=== PATIENT | female | born 1980 | race Caucasian/White ===

== ENCOUNTER 2018-02-05 10:42 | Emergency (ER) | payer OTHER ==
[2018-02-05 11:33] LABS: Urine Blood TRACE (NEG); Urine Glucose 2+ (NEG); Urine Protein NEGATIVE (NEG); Urine Specific Gravity 1.025 (1.005-1.030)
[2018-02-05] MEDS ORDERED: NA CHLORIDE 0.9% 1,000 ML ONE (11:41)
--- NOTE | 2018-02-05 11:55 | RAD REPORT ---
EXAM DESCRIPTION: CT - Head Brain Wo Cont - 02/05/2018 11:47 am CLINICAL HISTORY: r/o stroke CVA symptomology COMPARISON: No comparisons TECHNIQUE: All CT scans are performed using dose optimization technique as appropriate and may inclu de automated exposure control or mA/KV adjustment according to patient size. FINDINGS: No intracranial hemorrhage, hydrocephalus or extra-axial fluid collection.No areas of brai n edema or evidence of midline shift. The paranasal sinuses and mastoids are essentially clear. The calvarium is intact. IMPRESSION: No acute intracranial abnormality. If there is continued clinical concern for CVA, MR i maging of the brain would be recommended.
[2018-02-05 11:58] LABS: Absolute Lymphocytes (CBC) 2.3 K/uL (0.7-4.9); Absolute Monocytes 0.4 K/uL (0.1-1.3); Absolute Neutrophil 4.1 K/uL (1.8-8.0); Basophils % 0.6 % (0-1.3); Eosinophils % 3.1 % (0-4.4); Hematocrit 41.1 % (36.0-45.0); Lymphocytes % 32.1 % (15.3-44.8); MCH 28.4 pg (27.0-35.0); MCV 82.8 fL (80-100); MPV 8.5 fL (7.6-11.3); Monocytes % 6.1 % (3.3-12.3); RBC Red Blood Cell Count 4.96 M/uL (3.86-4.86)
[2018-02-05 12:00] LABS: Protime INR 0.9
[2018-02-05 12:15] LABS: ALT/SGPT 26 U/L (12-78); AST/SGOT 16 U/L (15-37); Albumin 3.5 g/dL (3.4-5.0); Alkaline Phosphatase 86 U/L (45-117); BUN Blood Urea Nitrogen 11 mg/dL (7-18); Bicarbonate 26 mmol/L (21-32); Bilirubin Direct < 0.1 mg/dL (0-0.2); Bilirubin Total 0.2 mg/dL (0.2-1.0); Glucose Level 116 mg/dL (74-106); Magnesium 2.1 mg/dL (1.8-2.4); NT PRO-BNP 27 pg/mL (<125); Potassium 4.1 mmol/L (3.5-5.1); Protein, Total 7.8 g/dL (6.4-8.2); Sodium Level 139 mmol/L (136-145); Troponin (Emerg Dept Use Only) < 0.02 ng/mL (0.0-0.045)
[2018-02-05 12:26] LABS: Urine Bacteria >50 /HPF (<20); Urine RBC <5 /HPF (NONE SEEN)
[2018-02-05 12:27] LABS: Urine Culture Reflex Order NOT NEEDED
--- NOTE | 2018-02-05 12:30 | RAD REPORT ---
EXAM DESCRIPTION: MRI - Brain Wo Cont - 02/05/2018 12:11 pm CLINICAL HISTORY: Right hand numbness COMPARISON: February 05, [address] TECHNIQUE: Axial, sagittal, and coronal magnetic resonance images of the brain were obtained. FINDINGS: No abnormal signal is present within the brain. Diffusion-weighted/ADC mapping does not reveal evidence of acute infarction. The ventricles are normal caliber. An extra-axial fluid collection is not noted. The sinuses and mastoids are clear. IMPRESSION: Unremarkable unenhanced brain MRI
[2018-02-05] MEDS ORDERED: ASPIRIN 81 MG CHEWABLE TABLET ONE (12:37)
[2018-02-05] MEDS ORDERED: CEFTRIAXONE/SWI 1gm 1 GM/10 ML SYR ONE (12:38)
[2018-02-05] MEDS ORDERED: FOLIC ACID 5 MG/ML VIAL ONE (12:38)
--- NOTE | 2018-02-05 13:40 | ER ---
Nurse's Notes [facility] Name: Matias Navarrete Age: 37 yrs Sex: Female : 1980 Arrival Date: 02/05/2018 Time: 10:46 Bed 24 Private MD: Diagnosis: Cystitis Presentation: 02/05 10:53 Presenting complaint: Patient states: Last night at 2130 the right side of my face and jl7 right hand went numb, my lips still feel tingly and my doctor told me to come here. Reports intermittent lightheaded and blurry vision. Transition of care: patient was not received from another setting of care. Onset of symptoms was February 04, 2018 at 21:30. Risk Assessment: Do you want to hurt yourself or someone else? Patient reports no desire to harm self or others. Initial Sepsis Screen: Does the patient meet any 2 criteria? No. Patient's initial sepsis screen is negative. Does the patient have a suspected source of infection? No. Patient's initial sepsis screen is negative. Care prior to arrival: None. 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 - Social history:: Smoking status: Patient/guardian denies using tobacco. - Ebola Screening: : No symptoms or risks identified at this time. - Family history:: not pertinent. Screenin:36 Abuse screen: Denies threats or abuse. Denies injuries from another. Nutritional aj screening: No deficits noted. Tuberculosis screening: No symptoms or risk factors identified. Fall Risk None identified. Assessment: 11:36 General: Appears in no apparent distress. comfortable, Behavior is calm, cooperative, aj appropriate for age. Pain: Denies pain. Neuro: Level of Consciousness is awake, alert, obeys commands, Oriented to person, place, time, situation, Appropriate for age Dope Firer are equal bilaterally Moves all extremities. Full function Gait is steady, Speech is normal, Facial symmetry appears normal, Pupils are PERRLA, Intact Reports headache numbness in right side of forehead, right baptism, right eye, right zygomatic area, right side of the nose, right cheek and right arm resolved last night at 2150, 20 minutes after sudden onset. Respiratory: Airway is patent Respiratory effort is even, unlabored, Respiratory pattern is regular, symmetrical. Derm: Skin is intact, is healthy with good turgor, Skin is pink, warm \T\ dry. normal. 13:53 Reassessment: Patient appears in no apparent distress at this time. No changes from aj previously documented assessment. Patient and/or family updated on plan of care and expected duration. Pain level reassessed. Patient is alert, oriented x 3, equal unlabored respirations, skin warm/dry/pink. Patient denies pain at this time. Vital Signs: 10:55 BP 141 / 101; Pulse 86; Resp 18 S; Temp 97.7(O); Pulse Ox 98% on R/A; Weight 89.36 kg jl7 (R); Height 5 ft. 5 in. (165.10 cm) (R); Pain 3/10; 12:34 BP 116 / 76; Pulse 78; Resp 19; Pulse Ox 99% on R/A; aj 13:04 BP 115 / 77; Pulse 73; Resp 20; Pulse Ox 100% on R/A; aj 13:53 BP 113 / 76; Pulse 78; Resp 19; Pulse Ox 99% on R/A; aj 10:55 Body Mass Index 32.78 (89.36 kg, 165.10 cm) jl7 ED Course: 10:46 Patient arrived in ED. mr 10:55 Triage completed. jl7 10:55 Arm band placed on right wrist. jl7 11:01 Ute Chaidez, RN is Primary Nurse. aj 11:08 Armaan Seals MD is Attending Physician. deborah 11:31 Urine --Ancillary (enter results) Sent. aj 11:31 Urine Dipstick--Ancillary (enter results) Sent. aj 11:31 Urine Microscopic Only Sent. aj 11:32 Urine Culture Sent. aj 11:36 Patient has correct armband on for positive identification. aj 11:36 Inserted saline lock: 20 gauge in left antecubital area, using aseptic technique. Blood aj collected. 12:05 Patient moved to MRI via wheelchair. em2 12:24 MRI completed. Patient tolerated well. Patient moved back from MRI. em2 12:47 EKG done, by pipe organ technician. reviewed by Armaan Seals MD. 3 13:28 X-ray completed. Portable x-ray completed in exam room. Patient tolerated procedure jb2 well. 13:39 Madhu Smart MD is Referral Physician. [facility] 13:53 No provider procedures requiring assistance completed. IV discontinued, intact, aj bleeding controlled, No redness/swelling at site. Pressure dressing applied. Administered Medications: 11:35 Drug: NS 0.9% 1000 ml Route: IV; Rate: 1 bolus; Site: left antecubital; aj 13:55 Follow up: Response: No adverse reaction; IV Status: Completed infusion; IV Intake: aj 1000ml 12:32 Drug: Rocephin - (cefTRIAXone) 1 grams Route: IVPB; Infused Over: 30 mins; Site: left aj antecubital; 12:40 Follow up: Response: No adverse reaction; IV Status: Completed infusion; IV Intake: 10mlaj 12:33 Drug: foLIC Acid 1 mg Route: IVPB; Site: left antecubital; aj 13:55 Follow up: Response: No adverse reaction; IV Status: Completed infusion; IV Intake: 1ml aj 12:33 Drug: Aspirin 162 mg Route: PO; aj 13:54 Follow up: Response: No adverse reaction aj Intake: 12:40 IV: 10ml; Total: 10ml. aj 13:55 IV: 1ml; Total: 11ml. aj 13:55 IV: 1000ml; Total: 1011ml. aj Outcome: 13:39 Discharge ordered by . [facility] 13:53 Discharged to home ambulatory, with family. aj 13:53 Condition: good 13:53 Discharge instructions given to patient, Instructed on discharge instructions, follow up and referral plans. medication usage, Demonstrated understanding of instructions, follow-up care, medications, Prescriptions given X 2. 13:56 Patient left the ED. aj Signatures: Ute Chaidez, RN Armaan Ni MD MD cha Rivera, Mary mr Fleming Roland jb2 Godwin Payne em2 Chanda Mullins RN RN jl7 Micaela Payne 3
--- NOTE | 2018-02-05 13:40 | EDPHYS ---
Physician Documentation [facility] Name: Matias Navarrete Age: 37 yrs Sex: Female : 1980 Arrival Date: 02/05/2018 Time: 10:46 Bed 24 Private MD: Armaan Moffett HPI: 02/05 13:35 This 37 yrs old Female presents to ER via Ambulatory with complaints of deborah facial numbness, Blurred Vision. 13:35 The patient is experiencing blurred vision. Onset: The symptoms/episode began/occurred deborah this morning. Duration: the symptoms last a few minutes. Aggravated by nothing. Alleviated by nothing. Associated signs and symptoms:. The patient's problem is reported as paresthesias, in right side of face. Duration: The episode is continuous. The patient presents with dizziness. 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 - Social history:: Smoking status: Patient/guardian denies using tobacco. - Ebola Screening: : No symptoms or risks identified at this time. - Family history:: not pertinent. ROS: 13:35 Constitutional: Negative for fever, chills, and weight loss, Eyes: Negative for injury, deborah pain, redness, and discharge, ENT: Negative for injury, pain, and discharge, Neck: Negative for injury, pain, and swelling, Cardiovascular: Negative for chest pain, palpitations, and edema, Respiratory: Negative for shortness of breath, cough, wheezing, and pleuritic chest pain, Abdomen/GI: Negative for abdominal pain, nausea, vomiting, diarrhea, and constipation, Back: Negative for injury and pain, : Negative for injury, bleeding, discharge, and swelling, MS/Extremity: Negative for injury and deformity, Skin: Negative for injury, rash, and discoloration, Psych: Negative for depression, anxiety, suicide ideation, homicidal ideation, and hallucinations, Allergy/Immunology: Negative for hives, rash, and allergies, Endocrine: Negative for neck swelling, polydipsia, polyuria, polyphagia, and marked weight changes, Hematologic/Lymphatic: Negative for swollen nodes, abnormal bleeding, and unusual bruising. 13:35 Neuro: Positive for tingling. Exam: 13:35 Radiologist reports: jersey cabrera 13:35 Constitutional: This is a well developed, well nourished patient who is awake, alert, and in no acute distress. Head/Face: Normocephalic, atraumatic. Eyes: Pupils equal round and reactive to light, extra-ocular motions intact. Lids and lashes normal. Conjunctiva and sclera are non-icteric and not injected. Cornea within normal limits. Periorbital areas with no swelling, redness, or edema. ENT: Nares patent. No nasal discharge, no septal abnormalities noted. Tympanic membranes are normal and external auditory canals are clear. Oropharynx with no redness, swelling, or masses, exudates, or evidence of obstruction, uvula midline. Mucous membranes moist. Neck: Trachea midline, no thyromegaly or masses palpated, and no cervical lymphadenopathy. Supple, full range of motion without nuchal rigidity, or vertebral point tenderness. No Meningismus. Chest/axilla: Normal chest wall appearance and motion. Nontender with no deformity. No lesions are appreciated. Cardiovascular: Regular rate and rhythm with a normal S1 and S2. No gallops, murmurs, or rubs. Normal PMI, no JVD. No pulse deficits. Respiratory: Lungs have equal breath sounds bilaterally, clear to auscultation and percussion. No rales, rhonchi or wheezes noted. No increased work of breathing, no retractions or nasal flaring. Abdomen/GI: Soft, non-tender, with normal bowel sounds. No distension or tympany. No guarding or rebound. No evidence of tenderness throughout. Back: No spinal tenderness. No costovertebral tenderness. Full range of motion. Female : Normal external genitalia. Skin: Warm, dry with normal turgor. Normal color with no rashes, no lesions, and no evidence of cellulitis. MS/ Extremity: Pulses equal, no cyanosis. Neurovascular intact. Full, normal range of motion. Neuro: Awake and alert, GCS 15, oriented to person, place, time, and situation. Cranial nerves II-XII grossly intact. Motor strength 5/5 in all extremities. Sensory grossly intact. Cerebellar exam normal. Normal gait. Psych: Awake, alert, with orientation to person, place and time. Behavior, mood, and affect are within normal limits. Vital Signs: 10:55 BP 141 / 101; Pulse 86; Resp 18 S; Temp 97.7(O); Pulse Ox 98% on R/A; Weight 89.36 kg jl7 (R); Height 5 ft. 5 in. (165.10 cm) (R); Pain 3/10; 12:34 BP 116 / 76; Pulse 78; Resp 19; Pulse Ox 99% on R/A; aj 13:04 BP 115 / 77; Pulse 73; Resp 20; Pulse Ox 100% on R/A; aj 13:53 BP 113 / 76; Pulse 78; Resp 19; Pulse Ox 99% on R/A; aj 10:55 Body Mass Index 32.78 (89.36 kg, 165.10 cm) 7 MDM: 11:08 Patient medically screened. [facility] 13:37 Data reviewed: vital signs, nurses notes, lab test result(s), EKG, radiologic studies, [facility] CT scan, MRI, plain films. 02/05 11:11 Order name: Urine Dipstick--Ancillary (enter results) 02/05 11:11 Order name: Urine --Ancillary (enter results) 02/05 11:11 Order name: Urine Culture 02/05 11:11 Order name: Urine Microscopic Only 02/05 11:17 Order name: Basic Metabolic Panel 02/05 11:17 Order name: CBC with Diff 02/05 11:17 Order name: LFT's 02/05 11:17 Order name: Magnesium 02/05 11:17 Order name: NT PRO-BNP 02/05 11:17 Order name: PT-INR 02/05 11:17 Order name: Troponin (emerg Dept Use Only) 02/05 11:34 Order name: Urine --Ancillary; Complete Time: 11:46 EDLA 02/05 11:34 Order name: Urine Dipstick-Ancillary; Complete Time: 11:46 EDLA 02/05 11:59 Order name: CBC with Automated Diff; Complete Time: 13:11 [facility] 02/05 11:17 Order name: CT Head Brain wo Cont 02/05 11:30 Order name: MRI Stroke Protocol [facility] 02/05 11:56 Order name: CT; Complete Time: 13:11 [facility] 02/05 12:01 Order name: Protime (+INR); Complete Time: 13:11 [facility] 02/05 12:16 Order name: Basic Metabolic Panel; Complete Time: 13:11 [facility] 02/05 12:16 Order name: Liver (Hepatic) Function; Complete Time: 13:11 [facility] 02/05 12:16 Order name: Troponin (Emerg Dept Use Only); Complete Time: 13:11 [facility] 02/05 12:16 Order name: NT PRO-BNP; Complete Time: 13:11 [facility] 02/05 12:16 Order name: Magnesium; Complete Time: 13:11 [facility] 02/05 12:27 Order name: Urine Microscopic Only; Complete Time: 13: [facility] 02/05 12:30 Order name: MRI; Complete Time: 13:11 [facility] 02/05 13:12 Order name: Chest Single View XRAY [facility] 02/05 13:44 Order name: RAD [facility] 02/05 11:17 Order name: EKG; Complete Time: 11:40 02/05 11:17 Order name: IV Saline Lock; Complete Time: 11:31 02/05 11:17 Order name: Labs collected and sent; Complete Time: 11:31 02/05 11:17 Order name: O2 Sat Monitoring; Complete Time: 11:31 Administered Medications: 11:35 Drug: NS 0.9% 1000 ml Route: IV; Rate: 1 bolus; Site: left antecubital; aj 13:55 Follow up: Response: No adverse reaction; IV Status: Completed infusion; IV Intake: aj 1000ml 12:32 Drug: Rocephin - (cefTRIAXone) 1 grams Route: IVPB; Infused Over: 30 mins; Site: left aj antecubital; 12:40 Follow up: Response: No adverse reaction; IV Status: Completed infusion; IV Intake: 10mlaj 12:33 Drug: foLIC Acid 1 mg Route: IVPB; Site: left antecubital; aj 13:55 Follow up: Response: No adverse reaction; IV Status: Completed infusion; IV Intake: 1ml aj 12:33 Drug: Aspirin 162 mg Route: PO; aj 13:54 Follow up: Response: No adverse reaction Disposition: 02/05/18 13:39 Discharged to Home. Impression: Cystitis. - Condition is Stable. - Discharge Instructions: Dysuria, Stroke Prevention, Aspirin and Your Heart, Stroke Prevention, [id number]. - Prescriptions for Vitamin 27- 0.8 mg Oral Tablet - take 1 tablet by ORAL route once daily; 30 tablet. Bactrim DS 800- 160 mg Oral Tablet - take 1 tablet by ORAL route every 12 hours for 7 days; 14 tablet. - Medication Reconciliation Form, Thank You Letter, Antibiotic Education, Prescription Opioid Use form. - Follow up: Private Physician; When: 2 - 3 days; Reason: Recheck today's complaints, Continuance of care, Re-evaluation by your physician. Follow up: Madhu Smart MD; When: 2 - 3 days; Reason: Recheck today's complaints, Continuance of care, Re-evaluation by your physician. - Problem is new. - Symptoms have improved. Signatures: Dispatcher [employer] EDMS Ute Chaidez RN RN aj Anderson, Corey, MD MD cha Leal, Jahala, RN RN jl7 Corrections: (The following items were deleted from the chart) 13:56 13:39 02/05/2018 13:39 Discharged to Home. Impression: Cystitis. Condition is Stable. aj Forms are Medication Reconciliation Form, Thank You Letter, Antibiotic Education, Prescription Opioid Use. Follow up: Private Physician; When: 2 - 3 days; Reason: Recheck today's complaints, Continuance of care, Re-evaluation by your physician. Follow up: Madhu Smart; When: 2 - 3 days; Reason: Recheck today's complaints, Continuance of care, Re-evaluation by your physician. Problem is new. Symptoms have improved. deborah
--- NOTE | 2018-02-05 13:42 | RAD REPORT ---
EXAM DESCRIPTION: Annabelle Single View02/05/2018 1:33 pm CLINICAL HISTORY: Cough COMPARISON: 2011 FINDINGS: The lungs appear clear of acute infiltrate. The heart is normal size IMPRESSION: No acute abnormalities displayed
[2018-02-05 14:01] VITALS: TEMP 97.7
[2018-02-05 14:04] VITALS: BP 113/76; O2SAT 99
--- NOTE | 2018-02-05 16:00 | EKG ---
Test Date: 2018-02-05 Test Time: 12:32:56 Storeroom Clerk: NOHEMI MEASUREMENT RESULTS: Intervals: Rate: 79 ME: 174 QRSD: 70 QT: 394 QTc: 451 [place]: P: 36 ME: 174 QRS: 48 T: 24 INTERPRETIVE STATEMENTS: Normal sinus rhythm Normal ECG No previous ECG available for comparison Electronically Signed On 02-05-18 15:59:03 OUTPATIENT PROGRAM COORDINATOR by Gilberto Kwok
== END 2018-02-05 13:56 | disposition home or self-care (01) ==
LOC: ER 10:42
DX: N30.90 Cystitis, unspecified without hematuria (principal)
CPT/HCPCS: 36415; 70450; 70551; 71045; 80048; 80076; 81003; 81015; 81025; 83735; 83880; 84484; 85025; 85610; 87086; 87088; 93005; J0696; J7030